=== PATIENT | male | born 1950 ===

== ENCOUNTER 2021-11-03 06:22 | Day surgery (SDC) | payer MEDICARE, OTHER ==
[2021-11-03] VITALS (11 sets, daily range): BP systolic 107–134; BP diastolic 58–78; PULSE 48–65; TEMP 97–98.4
[~2021-11-03] VITALS: Ht 182.9 cm; Wt 101.1 kg
[2021-11-03] MEDS ORDERED: PLAVIX 75MG TAB75 MG PO (08:01)
[2021-11-03] MEDS ORDERED: PROTONIX 40MG T40 MG PO (08:02)
[2021-11-03] MEDS ORDERED: ZETIA 10MG TAB10 MG PO (08:03)
[2021-11-03] MEDS ORDERED: DIOVAN HCT 12.51 TA2 PO (08:03)
[2021-11-03] MEDS ORDERED: FLOMAX 0.40.4 MG/CAP PO (08:04)
[2021-11-03] MEDS ORDERED: ZOCOR 40MG40 MG PO (08:04)
[2021-11-03] MEDS ORDERED: ASPIRIN 81M81 MG/TA2 PO (08:05)
--- NOTE | 2021-11-03 10:30 | NUR ---
From PACU to room 327 via bed. Oriented to room/policy. Assessment complete. A&Ox3-drowsy. States he has no feeling below the thigh area. CBI running at a slow to moderate rate with light pink output return. Denies pain/nausea/shortness of breath. O2@2L/NC with O2 saturations 94-96%. Clear liquid diet provided. Plan of care discussed for this shift to include pain control/VS/continued CBI. Verbalizes understanding/denies current needs. Call light in reach. Will monitor.
--- NOTE | 2021-11-03 11:00 | NUR ---
Tolerated clear liquids without N/V. General diet ordered for lunch-assisted with ordering.
--- NOTE | 2021-11-03 13:38 | NUR ---
CBI continues to run at a slow to moderate rate with light pink to reddish output. Denies pain/nausea/shortness of breath. Post op vitals remain stable. O2@2L/NC due to low saturation during sleep. Has tolerated PO. Denies current needs. Call light in reach. Will monitor.
--- NOTE | 2021-11-03 18:34 | NUR ---
Continues to have CBI at slow to moderate rate with light pink in color. Has been INTd-has had 3000mls of water in since arriving to the floor. Tolerating diet. Denies pain/nausea/shortness of breath. VS remain stable. Denies current needs. Call light in reach. Will monitor.
--- NOTE | 2021-11-03 21:35 | NUR ---
Pt. sitting up in bed. Pt. is A&OX3, assessment complete. INT to rt. wrist patent. Pt. denies pain. Reagan catheter to DD, with CBI running at a mod/slow rate. Urine is red tinged at this time with a few clots noted in the bag. Pt. denies further needs, call light within reach.
[2021-11-04 00:07] VITALS: BP 109/55; PULSE 64; TEMP 98.4
[2021-11-04 03:37] VITALS: BP 116/52; PULSE 62; TEMP 98.2
[2021-11-04 07:18] VITALS: BP 128/56; PULSE 64; TEMP 97.5
--- NOTE | 2021-11-04 08:14 | NUR ---
Patient resting in bed. Alert & oriented. Denies nausea. Breakfast ordered. Only complaint is of solis causing burning/discomfort. Cbi clamped, output light yellow in color. Voicemail let for to see if solis could be primed & pulled to relieve patient discomfort. Int. Will monitor.
--- NOTE | 2021-11-04 08:42 | NUR ---
Return call from . Orders to Prime & pull. Merary Jones. Patient tolerated well. He was nervous and had anxiety, but overall tolerated & did well.
--- NOTE | 2021-11-04 10:58 | NUR ---
Armament Installer met with patient to discuss discharge planning. Patient lives in [place] with his , Layla (ph#[phone]) and mikal Rojas for primary care. Patient obtains medications from [facility] in [place] with no difficulties. Patient uses a CPAP and no other DME. Patient is independent with ADLS and plans to return home at time of discharge. Patient reports his daughter, Ayesha is his DPOA-HC. Discharge Plan: Home
[2021-11-04 11:51] VITALS: BP 125/59; PULSE 60; TEMP 97.8
--- NOTE | 2021-11-04 13:29 | NUR ---
First visit from the curriculum designer. No needs right now.
[2021-11-04 15:51] VITALS: BP 124/63; PULSE 71; TEMP 98.5
--- NOTE | 2021-11-04 17:09 | NUR ---
Patient ready for discharge. rounded this afternoon. Levsin per orders, patient did not seem to notice pain relief. Pyridium orders obtained. called in scripts to pharmacy. We reviewed all discharge paperwork, including medication list. Int Dc. Patient taking him home & patient ambulated out with all belongings. Deny questions or concerns.
== END 2021-11-04 17:18 | disposition home or self-care (01) ==
LOC: SURG 06:22 → SDCO 06:22 → SURG 10:42 → SDCO 13:00
DX: N40.1 Benign prostatic hyperplasia with lower urinary tract symptoms (principal); R33.8 Other retention of urine; G47.33 Obstructive sleep apnea (adult) (pediatric); K21.9 Gastro-esophageal reflux disease without esophagitis; R35.0 Frequency of micturition; R39.15 Urgency of urination; R39.12 Poor urinary stream; Z99.89 Dependence on other enabling machines and devices; Z85.038 Personal history of other malignant neoplasm of large intestine
CPT/HCPCS: OP; J0690; J2250; J2704; J3010; J7120